=== PATIENT | male | born 2000 | race Caucasian/White ===

== ENCOUNTER 2020-10-07 10:57 | Emergency (ER) | payer OTHER, SELFPAY ==
[~2020-10-07] VITALS: Ht 175.3 cm; Wt 74.8 kg
[2020-10-07 11:03] VITALS: Ht 175.3 cm; Wt 74.8 kg
[2020-10-07 11:56] LABS: UA SPECIFIC GRAVITY >=1.030 (1.005-1.035); microscopic required? YES; urine erythrocyte 1+ (NEGATIVE)
[2020-10-07 12:06] LABS: BASOPHIL % 0.6 % (0.2-1.5); PLATELET COUNT 196 x10^3mcL (152-348); RED CELL DISTRIBUTION WIDTH 12.5 % (12.1-16.2)
[2020-10-07 12:23] LABS: CALCIUM 8.8 mg/dL (8.5-10.1); CARBON DIOXIDE 24.6 mmol/L (21-32); CHLORIDE SERUM 101 mmol/L (98-107); CREATININE SERUM 1.1 mg/dL (0.7-1.3); GFR1 > 60 mL/min; GLUCOSE SERUM 119 mg/dL (74-106); POTASSIUM SERUM 3.4 mmol/L (3.5-5.1); SODIUM SERUM 134 mmol/L (136-145)
[2020-10-07 12:28] LABS: ALKALINE PHOSPHATASE 76 U/L (46-116); ALT/SGPT 50 U/L (16-63); AST/SGOT 30 U/L (15-37); BILIRUBIN TOTAL 0.8 mg/dL (0.20-1.00); TOTAL PROTEIN, SERUM 7.6 g/dL (6.4-8.2)
[2020-10-07] MEDS ORDERED: TYL500 PO (13:19)
[2020-10-07 13:30] VITALS: BP 129/79
== END 2020-10-07 13:36 | disposition left against medical advice (07) ==
LOC: ED 10:57
PROVIDERS: Student in an Organized Health Care Education/Training Program
DX: R51.9 Headache, unspecified (principal); R50.9 Fever, unspecified; R11.0 Nausea; Z20.822 Contact with and (suspected) exposure to COVID-19
CPT/HCPCS: J7030; U0003